=== PATIENT | female | born 1975 | race American Indian/Alaskan Native ===

== ENCOUNTER 2016-05-29 15:48 | Emergency (ER) | payer OTHER ==
[2016-05-29] MEDS ORDERED: CATAPRES ONE (20:18)
[2016-05-29] MEDS: CATAPRES PO ONE (20:25)
[2016-05-29 22:00] LABS: Basophils % (Auto) 0.9 % (0.0-1.8); Eosinophils % (Auto) 1.1 % (0.0-4.3); Hematocrit 42.7 % (30.3-42.9); Hemoglobin 14.1 gm/dl (10.1-14.3); Mean Corpuscular HGB Conc 33 % (30-34); Mean Corpuscular Hemoglobin 31 pg (28-32); Mean Corpuscular Volume 93 fl (79-97); Platelet Count 161 K/mm3 (140-440); Red Blood Count 4.59 M/mm3 (3.65-5.03); Red Cell Distribution Width 14.6 % (13.2-15.2); White Blood Count 6.9 K/mm3 (4.5-11.0)
[2016-05-29 22:21] LABS: Creatine Kinase MB 1.4 ng/mL (0.0-4.0)
[2016-05-29 22:23] LABS: Anion Gap 20 mmol/L; BUN/Creatinine Ratio 8.88; Blood Urea Nitrogen 8 mg/dL (7-17); Calcium 8.8 mg/dL (8.4-10.2); Carbon Dioxide 24 mmol/L (22-30); Chloride 97.8 mmol/L (98-107); Creatine Kinase 614 units/L (30-135); Glucose 85 mg/dL (65-100); Potassium 4.1 mmol/L (3.6-5.0); Sodium 138 mmol/L (137-145)
--- NOTE | 2016-05-29 22:44 | XRay Report ---
FINAL REPORT PROCEDURE: XR CHEST ROUTINE 2V TECHNIQUE: PA and lateral chest radiographs were obtained. CPT 07656 HISTORY: Chest Pain COMPARISON: No prior studies are available for comparison. FINDINGS: Heart: Normal contour. Mediastinum/Vessels: Normal contour. Lungs/Pleural space: No infiltrate, effusion, or pneumothorax. On the lateral view there is a fairly dense 7 millimeter nodular density superimposed on the anterior heart border, possibly a pulmonary nodule Bony thorax: No acute osseous abnormality. Other: IMPRESSION: No radiographic evidence of acute abnormality. 7 millimeter nodular density seen on the lateral view overlying the anterior heart border, possibly pulmonary nodule or perhaps a nodular density within the soft tissues.
--- NOTE | 2016-05-29 23:41 | Emergency Department Report ---
HPI - General Chief Complaint: Upper Respiratory Infection Time Seen by Provider: 05/29/16 21:31 - HPI HPI: 41-year-old female presents today with body aches, chest pain, fever, chills 3 days. Positive for runny nose and cough. Tmax =102. Try Tylenol cold packs without relief. Denies sick contacts. Positive for vomiting. Denies nausea, abdominal pain, shortness of breath. Denies history of hypertension. ED Past Medical Hx - Past Medical History Previous Medical History?: No - Surgical History Hx Cholecystectomy: Yes Additional Surgical History: . HERNIA REPAIR. TONSILLECTOMY - Social History Smoking Status: Current Every Day Smoker Substance Use Type: Alcohol, Marijuana - Medications Home Medications: Home Medications Medication Instructions Recorded Confirmed Last Taken Type Azithromycin [Zithromax Z-MARTIN] 250 mg PO QDAY #6 tablet 05/30/16 Unknown Rx Fluticasone [Flonase] 1 spray NS QDAY #1 bottle 05/30/16 Unknown Rx Promethazine /Codeine 5 ml PO Q6H PRN #100 ml 05/30/16 Unknown Rx [Phenergan/Codeine 6.25-10 mg/5 ml] ED Review of Systems ROS: Stated complaint: COLD SYMPTOMS Other details as noted in HPI Constitutional: chills, fever. denies: malaise Eyes: denies: eye pain ENT: congestion. denies: ear pain, throat pain Respiratory: cough. denies: shortness of breath, wheezing Cardiovascular: chest pain. denies: palpitations Endocrine: no symptoms reported Gastrointestinal: denies: abdominal pain, nausea, vomiting Neurological: denies: headache, weakness Physical Exam - Physical Exam Vital Signs: Vital Signs 05/29/16 05/29/16 16:04 20:25 Temperature 98.4 F 98.1 F Pulse Rate 61 55 L Respiratory 20 16 Rate Blood Pressure 187/104 181/122 Blood Pressure 181/122 [Right] O2 Sat by Pulse 99 97 Oximetry Physical Exam: GENERAL: The patient is well-developed and well-nourished. Patient is in NAD. HEAD: Normocephalic. Atraumatic. EYES: PERRL. EARS: External auditory canals and tympanic membranes clear; hearing grossly intact. NOSE: Normal nasal mucosa with minimal nasal discharge. THROAT: Positive for erythema. No tonsillomegaly or tonsillar exudates noted. NECK: Supple, nontender, without lymphadenopathy. CHEST/LUNGS: Clear to auscultation throughout. HEART/CARDIOVASCULAR: Regular rate and rhythm. ABDOMEN: Abdomen is soft, nontender. No guarding or rebound tenderness. EXTREMITIES: Peripheral pulses intact. Capillary refill less than 2 seconds. NEURO: Alert and oriented x 3. Normal gait. ED Course Vital Signs 05/29/16 05/29/16 16:04 20:25 Temperature 98.4 F 98.1 F Pulse Rate 61 55 L Respiratory 20 16 Rate Blood Pressure 187/104 181/122 Blood Pressure 181/122 [Right] O2 Sat by Pulse 99 97 Oximetry ED Medical Decision Making - Lab Data Result diagrams: 05/29/16 21:47 05/29/16 21:47 Vital Signs 05/29/16 05/29/16 05/30/16 16:04 20:25 01:22 Temperature 98.4 F 98.1 F 97.9 F Pulse Rate 61 55 L 60 Respiratory 20 16 18 Rate Blood Pressure 187/104 181/122 Blood Pressure 181/122 153/94 [Right] O2 Sat by Pulse 99 97 100 Oximetry Lab Results 05/29/16 05/29/16 Range/Units 21:47 21:47 WBC 6.9 (4.5-11.0) K/mm3 RBC 4.59 (3.65-5.03) M/mm3 Hgb 14.1 (10.1-14.3) gm/dl Hct 42.7 (30.3-42.9) % MCV 93 (79-97) fl MCH 31 (28-32) pg MCHC 33 (30-34) % RDW 14.6 (13.2-15.2) % Plt Count 161 (140-440) K/mm3 Lymph % (Auto) 24.3 (13.4-35.0) % Hooker % (Auto) 13.8 H (0.0-7.3) % Eos % (Auto) 1.1 (0.0-4.3) % Baso % (Auto) 0.9 (0.0-1.8) % Lymph # 1.7 (1.2-5.4) K/mm3 Hooker # 1.0 H (0.0-0.8) K/mm3 Eos # 0.1 (0.0-0.4) K/mm3 Baso # 0.1 (0.0-0.1) K/mm3 Seg Neutrophils % 59.9 (40.0-70.0) % Seg Neutrophils # 4.1 (1.8-7.7) K/mm3 Sodium 138 (137-145) mmol/L Potassium 4.1 (3.6-5.0) mmol/L Chloride 97.8 L (98-107) mmol/L Carbon Dioxide 24 (22-30) mmol/L Anion Gap 20 mmol/L BUN 8 (7-17) mg/dL Creatinine 0.9 (0.7-1.2) mg/dL Estimated GFR > 60 ml/min BUN/Creatinine Ratio 8.88 % Glucose 85 (65-100) mg/dL Calcium 8.8 (8.4-10.2) mg/dL Total Creatine Kinase 614 H (30-135) units/L CK-MB (CK-2) 1.4 (0.0-4.0) ng/mL CK-MB (CK-2) Rel Index 0.2 (0-4) Troponin T < 0.010 (0.00-0.029) ng/mL - EKG Data -: EKG Interpreted by Fl EKG shows normal: sinus rhythm Rate: bradycardia - EKG Data When compared to previous EKG there are: previous EKG unavailable - Radiology Data Radiology results: report reviewed PROCEDURE: XR CHEST ROUTINE 2V TECHNIQUE: PA and lateral chest radiographs were obtained. CPT 70935 HISTORY: Chest Pain COMPARISON: No prior studies are available for comparison. FINDINGS: Heart: Normal contour. Mediastinum/Vessels: Normal contour. Lungs/Pleural space: No infiltrate, effusion, or pneumothorax. On the lateral view there is a fairly dense 7 millimeter nodular density superimposed on the anterior heart border, possibly a pulmonary nodule Bony thorax: No acute osseous abnormality. Other: IMPRESSION: No radiographic evidence of acute abnormality. 7 millimeter nodular density seen on the lateral view overlying the anterior heart border, possibly pulmonary nodule or perhaps a nodular density within the soft tissues. - Medical Decision Making 41-year-old female presents today with cough and cold symptoms 3 days. Her rapid strep test is negative. Explained to patient that there is no need for influenza testing K she is out of the 48 hour treatment window. She will be treated symptomatically anyways. Patient expressed understanding. Her chest x- ray reveals no radiographic evidence of acute abnormality however 7 mm nodular density is seen overlying the anterior heart border, possibly a pulmonary nodule or perhaps a nodular density within the soft tissue. 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 Her lab results were discussed with Dr. Aguilar. Patient is in no acute distress at this time. She will be discharged home and is encouraged to follow up with a primary care provider. She will be sent home on Z-Martin, promethazine/codeine and Flonase and is encouraged to return to the emergency room for any worsening symptoms. Critical care attestation.: If time is entered above; I have spent that time in minutes in the direct care of this critically ill patient, excluding procedure time. ED Disposition Clinical Impression: URI (upper respiratory infection) Qualifiers: URI type: unspecified URI Qualified Code(s): J06.9 - Acute upper respiratory infection, unspecified Pharyngitis Qualifiers: Pharyngitis/tonsillitis etiology: unspecified etiology Qualified Code(s): J02.9 - Acute pharyngitis, unspecified Disposition: DISCHARGED TO HOME OR SELFCARE Is pt being admited?: No Does the pt Need Aspirin: No Condition: Stable Instructions: Upper Respiratory Infection (ED), Pharyngitis (ED), Pulmonary Nodules (ED) Additional Instructions: Follow with primary care provider. Return to the emergency department if symptoms worsen. Prescriptions: Azithromycin [Zithromax Z-MARTIN] 250 mg PO QDAY #6 tablet Fluticasone [Flonase] 1 spray NS QDAY #1 bottle Promethazine /Codeine [Phenergan/Codeine 6.25-10 mg/5 ml] 5 ml PO Q6H PRN #100 ml PRN Reason: cough Referrals: PRIMARY CAREMD [Primary Care Provider] - 3-5 Days [facility] [Outside] - 3-5 Days EMIR LOPEZ MD [Staff Physician] - 3-5 Days Forms: Work/School Release Form(ED), Accompanied Note Time of Disposition: 01:48
[2016-05-29] MEDS: NACL 0.9% 1000 ML 1,000 ML IV ONE (23:49)
[2016-05-30 01:23] VITALS: BP 153/94
== END 2016-05-30 02:00 | disposition home or self-care (01) ==
LOC: ED 15:48
DX: J06.9 Acute upper respiratory infection, unspecified (principal); J02.9 Acute pharyngitis, unspecified; F17.200 Nicotine dependence, unspecified, uncomplicated; F12.10 Cannabis abuse, uncomplicated; Z90.49 Acquired absence of other specified parts of digestive tract; Z90.89 Acquired absence of other organs
CPT/HCPCS: 36415; 71020; 80048; 82550; 82553; 84484; 85025; 87116; 87430; 93005; 93010; 96360; 96361; 99284; J7030